=== PATIENT | male | born 1970 | race Caucasian/White ===

== ENCOUNTER 2019-11-23 20:00 | Emergency (ER) | payer OTHER ==
--- NOTE | 2019-11-23 20:39 | RAD ---
Left thumb 3 views HISTORY: Injury. FINDINGS: Soft tissue amputation of the distal tuft with crush injury and minimal displacement of the tuft of the distal phalanx. No intra-articular extension. No metallic foreign bodies. IMPRESSION : Mildly displaced crush injury distal tuft left.
[2019-11-23] MEDS ORDERED: Morphine 4 MG/ML VIAL ONE ×3 (20:55→22:26)
[2019-11-23] MEDS ORDERED: Ondansetron PF 4 MG/2 ML Vial ONE ×2 (20:55→22:00)
[2019-11-23] MEDS ORDERED: Bacitracin 1 PK ONE (21:50)
[2019-11-23] MEDS ORDERED: Adacel (T-DAP) 0.5 ML SYRINGE ONE (22:00)
[2019-11-23] MEDS ORDERED: Ketorolac Tromethamine 30 MG/ML VIAL ONE (22:00)
== END 2019-11-23 22:46 | disposition home or self-care (01) ==
LOC: ERS 20:00
DX: S68.021A Partial traumatic metacarpophalangeal amputation of right thumb, initial encounter (principal); K21.9 Gastro-esophageal reflux disease without esophagitis; W23.0XXA Caught, crushed, jammed, or pinched between moving objects, initial encounter
CPT/HCPCS: 90471; 90715; 96365; 96375; 96376; J0694; J1885; J2270; J2405